=== PATIENT | female | born 1990 | race Caucasian/White ===

== ENCOUNTER 2025-05-18 09:49 | Outpatient (AMB) | payer OTHER, SELFPAY ==
--- NOTE | 2025-05-18 09:52 | MHC.OFFVIS ---
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 She has had a total of 5-10 seizures in her life with her last seizure in 09/2016. She was first treated with Depakote, but medication caused weight gain. She was switched to Keppra which was continued until her last breakthrough seizure when she missed just one dose and had major convulsive seizure. She was switched to topiramate and was taking extended release initially, but is now taking immediate release 400mg at bedtime without side effects or seizure recurrence. She was doing okay. She was taking topiramate at bedtime, no medication side effects. No seizures. Sleep was up and down. Mood was okay. [facility] Medical History (Updated 05/18/25 @ 09:54 by Bonita Guadalupe CNP) Epilepsy Review of Systems Const Denies chills, Denies daytime sleepiness, Reports difficulty sleeping, Denies fatigue, Denies fever(s), Denies frequent falls, Denies headache(s), Denies increased appetite, Denies poor appetite, Denies snoring, Denies weakness, Denies weight gain and Denies weight loss Eyes Denies loss of vision ENT Denies vertigo, Denies dizziness, Denies headache(s) and Denies neck pain Card Denies chest pain at rest, Denies chest pain with activity, Denies syncope, Denies leg edema, Denies palpitations, Denies dyspnea and Denies dyspnea on exertion Resp Denies cough, Denies dyspnea, Denies dyspnea on exertion and Denies snoring GI Denies abdominal pain, Denies constipation, Denies heartburn, Denies diarrhea and Denies nausea Denies urinary frequency, Denies urinary incontinence and Denies urinary urgency Musc Denies abnormal gait, Denies back pain, Denies myalgias, Denies arthralgias, Denies neck pain, Denies numbness and Denies tingling Neuro Denies abnormal gait, Denies vertigo, Denies dizziness, Denies syncope, Denies frequent falls, Denies headache(s), Denies lack of coordination, Denies loss of vision, Denies memory loss, Denies numbness, Denies Other visual disturbances, Denies restless legs, Denies seizure-like activity, Denies tingling, Denies paresthesias, Denies tremor(s) and Denies weakness Psych Denies anxiety, Denies depression, Denies auditory hallucinations, Denies memory loss and Denies visual hallucinations Endo Denies fatigue and Denies palpitations Physical Exam Const Other: General Appearance:? normal, in no acute distress. Heart:? S1, S2 normal, no murmurs. Lungs:? clear anteriorly and posteriorly. Musculoskeletal:? normal. Extremities:? no edema. Psych:? alert, oriented, cognitive function intact, cooperative with exam. Neuro Other: Abnormal Neurological Findings:?none.? Mental Status: alert and oriented X 3. Normal attention, orientation, memory, and affect. Cranial Nerves: Pupils are equal, round, and reactive to light. External ocular muscles are intact. Visual jaimes are full, no ptosis. Face is symmetrical, no facial weakness or droop. Facial sensations are normal. Tongue protrudes in midline. Palate elevates symmetrically. Shoulder shrugging is normal Motor Examination: Normal muscle tone, bulk and strength. No atrophy or fasciculations. No drift of the extended upper extremities. DTR 2+. Plantars are flexor. Sensory Exam: Normal light touch, temperature, pinprick, vibration, and joint-position sensations. Rhomberg sign is absent. Coordination: No ataxia. No titubation. Gait Exam: Within normal limits. Cerebellar Signs: [id number] is okay. Extrapyramidal System: No tremor, rigidity with normal facial expressions. No bradykinesia. No bradyphrenia. Normal arm swing and posture. No propulsion or retropulsion. Speech: Normal. Assessment & Plan Assessment & Plan (1) Epilepsy: Code(s): G40.909 - Epilepsy, unspecified, not intractable, without status epilepticus Category: Medical Qualifiers: Epilepsy type: generalized idiopathic Intractability: not intractable Status epilepticus: without status epilepticus Qualified Code(s): G40.309 - Generalized idiopathic epilepsy and epileptic syndromes, not intractable, without status epilepticus Plan: Continue topiramate 200mg 2 tablets at bedtime. Plan Meds tried: Depakote, Keppra, Topiramate XR Coding Level of Care Code Est Pt Level 3 (30256) Diagnoses Nonintractable generalized idiopathic epilepsy without status epilepticus G40.309 Epilepsy type: generalized idiopathic Intractability: not intractable Status epilepticus: without status epilepticus
--- OUTSIDE RECORDS SUMMARY | 2025-05-18 10:59 | XMS_ITS | Data Portability ---
Author Organization [place] - [facility], Allergy Address [address] [address] Assessment Encounter Date Assessment Date Assessment LastModified by Organization Details LastModified Time 12/13/2024 12/13/2024 34yo female with barometric headaches presents for evaluation of chronic left-sided rhinorrhea. The rhinorrhea is worse in the winter and while eating hot foods. She has been using Flonase with minimal relief. Nasal examination demonstrates inferior turbinate hypertrophy, left septal deviation, and mucoid rhinorrhea. Nasal endoscopy is benign. Recommend environmental allergy testing and another trial of INS and oral antihistamine. The patient will return for follow up after allergy testing for reevaluation, or sooner with worsening symptoms. May consider CT sinus if symptoms persist or worsen. Patient agrees with the plan and all questions were answered. 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 Allergy testing on 01/18/2025 demonstrated moderate sensitivities in all environmental allergen categories. We discussed lifestyle modifications, medical therapy versus immunotherapy. The patient is an excellent candidate for immunotherapy with either SCIT vs SLIT. She would like to trial daily fexofenadine and intranasal steroid spray for 4-6 weeks first, and will consider immunotherapy if symptoms persist or worsen. [facility] Not available 03/03/2025 10:49:04 Plan of Treatment Reminders Order Date Submit Date Provider Last Modified By Organization Details Last Modified Time Details Appointments None recorded. Lab None recorded. Referral None recorded. Procedures allergy testing, skin prick (PROC) 2024 025 [email or web address] Not available 5 15:55:02 intradermal allergy skin testing (PROC) 2024 025 [facility] Not available 15:55:02 pulmonary function test procedure (PROC) 2024 025 [facility] Not available 5 15:55:02 pulse oximetry (PROC) 2024 025 [facility] Not available 15:55:02 Surgeries None recorded. Imaging None recorded. Medication Orders None recorded. Patient TargetsNo targets recorded. Patient Instructions Encounter Date Encounter Id Patient Instructions Last Modified By Organization Details Last Modified Time 01/18/2025 [id number] spirometry testing* [email or web address] Not available 01/18/2025 12:11:57 Reason for Referral None Reported. Results Created Date Observation Date Name Description Value Unit Range Abnormal Flag Note LastModifiedBy Organization Detail LastModifiedTime 01/19/20 25 jorgito metry testi ng* No observ ation record ed. [email or web address] Not Available 2024 09:58:02 Result Notes None recorded. Problems Name Problem SNOMED Code Status Onset Date Resolution Date Notes Provider Name and Address Organization Details Recorded Time Allergic rhinitis 79337792 Active 025 VIOLETTA CLARKE PA-C 100 [facility],[address], [address] , [facility] 5 10:48:16 Problem Notes None recorded. Procedures Surgical History Date Name Laterality Status Provider Name and Address Organization Details Recorded Time 5 Allergy Testing-Full completed AP DICK RN 100 [facility],[address], [address], [facility] 01/18/2025 11:26:41 5 NasalEndosco py_DP completed VIOLETTA CLARKE PA-C 100 [facility],[address], [address], [facility] 12/13/2024 12:19:40 Imaging Results None recorded. Procedure Notes None recorded. Medical Equipment None Reported. Allergies Allergen ID Allergen Name Allergen Category Reaction Reaction Severity Criticality Documentation Date Start Date Code Code System Note Provider Name and Address Organization Details Recorded Time 648732 tree nut food itching mild Not available 03/03/2025 Margoth umaña [place] - [facility] 5 10:26:23 999320 Canis lupus familiari s extract environme nt itching mild Not available 03/03/20252011 00685 4 RxNorm Margoth umaña [place] - [facility] 5 10:26:23 560454 sawant allergeni c extract food,medi cation itching mild Not available 03/03/2025 65120 1 RxNorm Margoth umaña [place] [facility] 10:26:23 Medications Name Sig Start Date Stop Date Status Note LastModified by Organization Details LastModified Time metronidazol e 500 mg tablet TAKE 1 TABLET BY MOUTH TWICE A DAY FOR 7 DAYS 02/10 completed Not Available Not Available Not Available levothyroxin e 25 mcg tablet TAKE 1 TABLET BY MOUTH 1 TIME EACH DAY. active Not Available Not Available No t Available topiramate 200 mg tablet TAKE 2 TABLETS BY MOUTH AT BEDTIME FOR 90 DAYS active Not Available Not Available No t Available Vitals Date Recorded Body height Body mass index (BMI) Body weight Provider Name and Address Organization Details Last Updated DateTime 12/13/2024 165.1 cm 26.6 kg/m2 98142.78 g Margoth Babcock [place] [facility] 12/13/2024 09:29:03 Date Recorded Body height Oxygen saturation Heart rate Body mass index (BMI) Body weight Heart rate Systolic And Diastolic Provider Name and Address Organization Details Last Updated DateTime 165.1 cm 99 % 101 /min 27.5 kg/m2 38433.7 4 g 86 /min 124/88 mm[Hg] Lamar Kaba [address] [place] [address], [address] - [facility] 5 10:14:20 Date Recorded Body height Body mass index (BMI) Body weight Provider Name and Address Organization Details Last Updated DateTime 03/03/2025 165.1 cm 27.5 kg/m2 39584.74 g Margoth Yoko HASS[place] - [facility] 03/03/2025 10:26:15 Social History Question Answer Notes LastModified by Organizat ion Details LastModified Time Tobacco Smoking Status Former Smoker Margoth Cagetorres umaña [place] - [facility] 12/13/2024 09:29:24 How Many Years Have You Consumed Alcohol? 10 Information not available 12/13/2024 What Type Of Commercial Credit Head Do You Use? None Information not available 12/13/2024 How Many Alcoholic Drinks Do You Consume Per Day On Average? 0 Information not available 12/13/2024 When Did You Quit Smoking? 1-5yearssinc elastcigaret te Information not available 12/13/2024 What Is Your Current Pack Years? 10packyears Information not available 12/13/2024 Do You Have Any Pets? Yes Information not available 12/13/2024 At What Age Did You Start Smoking Tobacco? 13 Information not available 12/13/2024 Are You Passively Exposed To Smoke? No Information not available 12/13/2024 Are There Any Smokers In Your House? No Information not available 12/13/2024 How Much Tobacco Do You Smoke? 0.25 PPD Information not available 12/13/2024 How Many Years Have You Smoked Tobacco? 17 Information not available 12/13/2024 How Many Years Have You Used E-cigarettes Or Vape? 4 Information not available 12/13/2024 Sex: Unknown Functional Status Question Answer Note LastModified by Organization Details LastModified Time How many times per week do you consume alcohol? Less than 1 time per week Inform ation not available 12/13/2024 Do you use any illicit or recreational drugs? No Information not available 12/13/2024 Do you or have you ever used any other forms of tobacco or nicotine? Yes Information not available 12/13/2024 What is your level of alcohol consumption? Occasional Information not available 12/13/2024 Do you or have you ever used smokeless tobacco? Never used smokeless tobacco Information not available 12/13/2024 Do you or have you ever used e-cigarettes or vape? Current user of electronic cigarettes Information not available 12/13/2024 What type of noise exposure are you exposed to? noExposureToExcessiveNoise Infor mation not available 12/13/2024 Mental Status None recorded. Family History Relationship Description Onset Age of this Age Resolved Age Notes LastModified by Organization Details LastModified Time Paternal Aunt Disorder of thyroid gland Not available 2024 09:29:09 Maternal Grandmother Diabetes mellitus 71 Not available 2024 09:29:09 Medical History Condition Response Rhinitis Y Food Allergy Y Anxiety Y Tonsil Infections N Eczema N Thyroid Problems Y COPD N Nasal polyps N Nasal or Sinus Problems N High Cholesterol N Liver Disease N Headaches Y Other Skin Condition N Gynecological HistoryNo gynecological history recorded. Obstetrics History GPAL:G 0 P 0 0 0 0 Past Encounters Encounter ID Performer Location Encounter Start Date Encounter Closed Date Diagnosis/Indication Diagnosis SNOMED-CT Code Diagnosis ICD10 Code Diagnosis IMO Codes Diagnosis Note [id number] VIOLETTA CLARKE PA-C [facility] [address] [address] 12/13/2024 09:15:50 12/13/2024 10:06:46 Nasal discharge 61505771 J34.89 [id number] AP DICK RN Allergy [address] [place] [address] [address] 01/18/2025 09:56:42 01/18/2025 11:27:35 Perennial allergic rhinitis 606005555 J30.89 562004 [id number] VIOLETTA CLARKE PA-C [facility] [address] [address] 03/03/2025 10:12:42 03/03/2025 10:44:31 Allergic rhinitis 76937103 J30.9 4168792 Health Concerns Section Related Observation LastModified by Organization Detai ls LastModified Time None Recorded Concern Status LastModified by Organization Details LastModified Time None Recorded Advance Directives Directive None Recorded Payers Insurance Date Sequence Insurance Name Policy Number Policy Trevizo Covered Member ID Trevizo Member ID Guarantor Name 02/28/2025 1 [facility] PLAN (MEDICAID HMO) RAFA Gallo [id number] Anegla Gallo Notes Date Note Type Note Provider Name and Address Organization Details Recorded Time 12/13/2024 text/html ROS as noted in the [facility] 34yo female with barometric headaches presents for evaluation of left-sided rhinorrhea, This started 3+ years ago, worse in the winter. Nasal drainage refractory to saline or Flonase. Reports texture is between mucus and CSF. Reports bilateral clear nasal drainage with eating hot foods. Denies correlation with migraine, cold weather, or eating otherwise. Reports infrequent nasal congestion. Denies anosmia. In the past she has benefited from oral antihistamine. No sinus infection history. No prior head or neck surgery. 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 Allergy testing on 01/18/2025 demonstrated moderate sensitivities to all categories, most significant to birch tree. She reports allergy symptoms are fairly well-controlled with rare runny nose and headache. She started using Fexofenadine, which has helped, but often forgets to take this on a daily basis. She has not trialed any intranasal steroid sprays. She reports excessive dust exposure at work, frequent sneezing, and 1 dog at home. NATASHA BIGGS MD 100 [facility],[address], [address], [facility] - [facility] 03/03/2025 12:09:44 OBGyn Episode No OBEpisode recorded.
--- OUTSIDE RECORDS SUMMARY | 2025-05-18 10:59 | XMS_ITS ---
Author Name [facility] Organization Unknown Care Team Organization Name Specialty Phone Email Start Date End Da te [facility] RONALD CARBALLO Primary Care [email or web address] 08/21/2022 4 [facility] Mike, PROVIDER Primary Care 06/24/2022 4 [facility] Kelley Pedraza Primary Care 04/23/2022 4
--- OUTSIDE RECORDS SUMMARY | 2025-05-18 10:59 | XMS_ITS | Continuity of Care Document ---
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 [email or web address] Not available 03/03/2025 10:49:04 Plan of Treatment Reminders Order Date Submit Date Provider Last Modified By Organization Details Last Modified Time Details Appointments None record ed. Lab None record ed. Referral None record ed. Procedures None record ed. Surgeries None record ed. Imaging None record ed. Medication Orders None record ed. Patient TargetsNo targets recorded. Patient InstructionsNo instructions recorded. Reason for Referral None Reported. Problems Name Problem SNOMED Code Status Onset Date Resolution Date Notes Provider Name and Address Organization Details Recorded Time Allergic rhinitis 88798391 Active August CLARKE PA-C [address] [place] [address], [facility] SONYA luna, [address] , [place] - [facility] 5 10:48:16 Problem Notes None recorded. Procedures Surgical History Date Name Laterality Status Provider Name and Address Organization Details Recorded Time Allergy Testing-Full completed AP DICK RN 100 [facility] [address], [address], [facility] - [facility] 01/18/2025 11:26:41 5 NasalEndosco py_DP completed VIOLETTA CLARKE PA-C 100 [facility], [place], [address], [facility] - [facility] 12/13/2024 12:19:40 Imaging Results None recorded. Procedure Notes None recorded. Medical Equipment None Reported. Allergies Allergen ID Allergen Name Allergen Category Reaction Reaction Severity Criticality Documentation Date Start Date Code Code System Note Provider Name and Address Organization Details Recorded Time 508208 tree nut food itching mild Not available 03/03/2025 Margoth umaña [place] - [facility] 5 10:26:23 143503 Canis lupus familiari s extract environme nt itching mild Not available 03/03/20252011 36799 4 RxNorm Margoth umaña [place] [facility] 5 10:26:23 997659 sawant allergeni c extract food,medi cation itching mild Not available 03/03/2025 82081 1 RxNorm Margoth umaña [place] - [facility] 5 10:26:23 Medications Name Sig Start Date Stop [...] Updated DateTime 03/03/2025 165.1 cm 27.5 kg/m2 29039.74 g Margoth Babcock [place] [facility] 03/03/2025 10:26:15 Social History Question Answer Notes LastModified by Organizat ion Details LastModified Time Tobacco Smoking Status Former Smoker Margoth umaña [place] - [facility] 12/13/2024 09:29:24 How Many Years Have You Consumed Alcohol? 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 None Information not available [...] ICD10 Code Diagnosis IMO Codes Diagnosis Note [id number] VIOLETTA CLARKE PA-C [facility] [address] [address] 03/03/2025 10:12:42 03/03/2025 10:44:31 Allergic rhinitis 12133005 J30.9 8215218 Health Concerns Section Related Observation LastModified by Organization Detai ls LastModified Time None Recorded Concern Status LastModified by Organization Details LastModified Time None Recorded Payers Encounter Date Sequence Insurance Name Policy Number Policy Trevizo Covered Member ID Trevizo Member ID Guarantor Name 03/03/2025 1 [facility] PLAN (MEDICAID HMO) RAFA Gallo [id number] Angela Gallo Notes Date Note Type Note Provider Name and Address Organization Details Recorded Time 03/03/2025 text/html ROS as noted in the HPI 34-year-old 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 NATASHA BIGGS MD [address] [place] [address], [place], [address], [place] [facility] 03/03/2025 12:09:44 OBGyn Episode No OBEpisode recorded.
--- OUTSIDE RECORDS SUMMARY | 2025-05-18 10:59 | XMS_ITS | Clinical Summary ---
Author Organization [facility] [address] [facility] Address [address] 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 Active levothyroxine (SYNTHROID, LEVOTHROID) 25 mcg tablet TAKE 1 TABLET BY MOUTH 1 TIME EACH DAY. 90 tablet 04/11/2025 Active Active Problems Problem Noted Date Diagnosed Date Seizure ([facility] V24, [facility] V28) 09/24/2024 Hypothyroidism 09/24/2024 Epilepsy ([facility] V24, [facility] V28) 03/18/2024 Overview (03/18/2024): [place] [facility] - Dr. 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 Pap 2/10 MIRIAM 1 again, repeat colposcopy 08/21/09 - MIRIAM 1 07/12/2013 - Cervical high risk human pap illomavirus (HPV) DNA test positive 03/01/2008 Overview (03/18/2024): MIRIAM 1 by colpo 02/21, pap repeated 01/22 - normal. Pap 2/10 MIRIAM 1 again, repeat colposcopy 08/21/09 - MIRIAM 1 07/12/2013 - colpo bx normal. Pap 2014 normal with + HPV. Pap 2015 ASCUS and HPV. Colposcopy - 03/2016, normal, ECC normal. Repeat co-testing 12 months. Chronic lymphocytic thyroiditis 11/04/2005 Immunizations Immunization Administration Dates Next Due BCG 04/02/1993,1989 DTP 03/26/1994, 1,01/20/1990,11/25,1989 [id number] (Pentacel) 2mo to less than 5yo 04/02/1993 HPV, Quadrivalent 07/10/2007,02/17/2007,12/03/19 07 Hepatitis B Pediatric (Enger ix B; Recombivax HB) to less than 20 yo 04/02/2002,10/16/2001,09/15/2001 Influenza Quadravalent, MDCK , 0.5ml, preservative free (Flucelvax) 6mo and older 04/29/2022 Influenza trivalent, with pr eservative (Fluzone; Afluria) 6mo and older 03/09/2015,05/18/2013,03/26/2011 MMR, measles mumps and rubel la Live (Priorix; M-M-R II) 12mo and older 03/26/1999,04/02/1993 Measles 08/10/1990 Meningococcal MCV4P 12/02/2006 OPV 03/26/1994, 1,01/20/1990,11/25,1989 Td Tetanus diptheria (Tdvax) 7yo and older 09/15/2001 Tdap Tetanus diptheria acell ular pertussis (Boostrix; Adacel) 7yo and older 01/14/2017,12/02/2006 Varicella live (Varivax) 12m o and older 05/27/1991 Surgical History Surgery Date Site/Laterality Comments WISDOM TOOTH EXTRACTION PROCEDURE: HISTORICAL WISDOM TEETH EXTRACTION Medical History Medical History Date Comments Varicella without mention of complication 1990 DX:Varicella without mention of complication Streptococcal sore throat DX:Str eptococcal sore throat Unspecified otitis media DX:Unsp ecified otitis media 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 DX:Generalized convulsive ep ilepsy without mention of intractable epilepsy; COMMENT: 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 11/08/2006 DX:Generalized convulsive ep ilepsy without mention of intractable epilepsy; COMMENT: Dr Pittman/neuro recent visit 04-22 Single seizure 2 /EEG primary generalized epilepsy Depakote 250mg am and 500mg pm till summer 2005 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 Unspecified epilepsy without mention of intractable epilepsy DX:Unspecified epilepsy with out mention of intractable epilepsy; COMMENT: 07/20-Shira Pittman neuro recent visit 04-22 Single seizure 2 /EEG showed primary generalized epilepsy Depakote 250mg am and 500mg pm till summer 2005 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 Visit 10-21,poor compliance ,no driving advised,trial off meds x6m f/u last pedi visit 04-23 Family History Medical History Relation Name Comments Diabetes Maternal Grandmother Insulin Hypertension Paternal Grandfather Breast cancer Neg Hx Colon cancer Neg Hx Ovarian cancer Neg Hx Pancreatic cancer Neg Hx Prostate cancer Neg Hx Uterine cancer Neg Hx Relation Name Status Comments Brother Alive Father Alive Koko-1956 Maternal Grandmother Mother Alive Nevaeh-1956 Mo leslye from [place] 2000 Paternal Grandfather (Age 70's) gastric cancer Social History Tobacco Use Types Packs/Day Years Used Date Smoking Tobacco: Former Cigarettes 0.3 Q uit: 10/01/2015 Smokeless Tobacco: Current Alcohol Use Standard Drinks/Week Comments Yes 0 (1 standard drink = 0.6 oz pur e alcohol) Housing Instability Answer Date Recorde d Are you worried that in the next 2 months you may not have stable housing? No 05/25/2024 Food Access & Nutrition Answer Date Rec orded Do you have access to a vari ety of food including fruits and vegetables? Yes 05/25/2024 Access to Healthcare Answer Date Record ed Within the last 3 months, ho w many times did you visit the emergency department for your medical care? 0 05/25/2024 Health Literacy Answer Date Recorded How often do you need to hav e someone help you when you read instructions, pamphlets, or other written material from your doctor or pharmacy? Never 05/25/2024 Caregiver: How often do you need to have someone help you when you read instructions, pamphlets, or other written material from your doctor or pharmacy? Not on file 05/25/2024 Financial Risk Answer Date Recorded How hard is it for you to pa y for the very basics like food, housing, medical care, and air conditioning / heating? Not very hard 05/25/2024 Transportation Answer Date Recorded Has the lack of transportati on kept you from meetings, work, or from getting things needed for daily living? No Has the lack of transportati on kept you from medical appointments or from getting medications? No 05/25/2024 Social Isolation Answer Date Recorded How often do you feel lonely or isolated from th ose around you? Rarely 05/25/2024 Food Risk Answer Date Recorded Within the past 12 months we worried whether our food would run out before we got money to buy more. Never true 05/25/2024 Within the past 12 months th e food we bought just didn't last and we didn't have money to get more. Never true 05/25/2024 Dependent Care Answer Date Recorded Do you need help finding or paying for care for your loved ones. For example, child abuse worker or elderly care for an older adult? No 05/25/2024 Education Answer Date Recorded Do you think completing more education or training, like finishing a GED, going to college, or learning a trade, would be helpful for you? Yes 05/25/2024 Employment and Income Answer Date Recor ded During the last four weeks, have you been actively looking for work? Yes 05/25/2024 Living Situation Answer Date Recorded What is your living situation? Unrecognized valu e 05/25/2024 Comments No Sex and Gender Information Value Date Recorded Sex Assigned at Not on file Legal Sex Female 9:58 AM EST Gender Identity Not on file Sexual Orientation Not on file Obstetrics History * This document contains information received from the source organization and may not represent a complete record from that organization. Para Term AB IAB SAB Ectopic Multiple Livin g Live Births 1 0 0 0 0 0 0 0 Date Outcome GA Total Labor Labor/2nd/3rd Weight Sex Type Anes PTL Bri A1 A5 Name Clin Last Filed Vital Signs Vital Sign Reading Time Taken Comments Blood Pressure 131/85 10/22/2024 11:21 AM EDT Pulse 85 10/22/2024 11:21 AM EDT Temperature 36.6 C (97.9 F) 10/22/2024 11:21 AM EDT Respiratory Rate 12 05/26/2024 12:33 PM EST Oxygen Saturation 100% 10/22/2024 11:21 AM EDT Inhaled Oxygen Concentration - - Weight 75.3 kg (166 lb) 10/22/2024 11:21 AM EDT Height 165.1 cm (5' 5 ) 10/22/2024 11:21 AM EDT Body Mass Index 27.62 10/22/2024 11:21 AM EDT Plan of Treatment Upcoming Encounters Date Type Department Care Team (Late st Contact Info) Description 06/24/2025 10:20 AM EST Office Visit Endocrinology [address] [phone] Elba Herrera PA [address] [place], [place] 06/30/2025 3:00 PM EST Office Visit Adult Medicine [address] [phone] Roselia Delgado MD [address] [place], [place] Health Maintenance Due Date Last Done Comments COVID-19 Vaccine ( season) 2025 10/14/2021, 12/05/2020, 11/07/2020 Influenza Vaccine (#1) 2025 2, 03/09/2015, 05/18/2013, Additional history exists Social Influencers of Health Screening 05/25/2025 05/25/2024 DTaP,Tdap,and Td Vaccines (9 - Td or Tdap) 01/14/2027 01/14/2017, 12/02/2006, 09/15/2001, Additional history exists Cervical Cancer Screening: HPV 01/27/2029 01/28/2024 Cholesterol Screening (Lipid Panel) 04/30/2029 04/30/2024, 04/29/2022 RSV Immunization Adult Patients (1 - 1-dose 75+ series) 2064 Varicella Vaccines Aged Out 05/27/1991 No longer eligible based on patient's age to complete this topic HIB Vaccines Completed 04/02/1993, 04/02/1993 IPV Vaccines Completed 03/26/1994, 03/16, 02/12/1991, Additional history exists MMR Vaccines Completed 03/26/1999, 04/02/1993 Hepatitis B Vaccines Completed 04/02/2002, 10/16/2001, 09/15/2001 Meningococcal ACWY Vaccine Completed 12/02/2006 HPV Vaccines Completed 07/10/2007, 09/2006, 12/02/2006 HIV Screening Completed 02/18/2018 Hepatitis C Screening Completed 02/18/2018 Depression Screening Completed 09/17/2024, 12/30/19 24 Hepatitis A Vaccines Aged Out No long er eligible based on patient's age to complete this topic Meningococcal B Vaccine Aged Out No l onger eligible based on patient's age to complete this topic Pneumococcal Vaccine: Pediatrics (0 to 5 Years) and At-Risk Patients (6 to 49 Years) Aged Out No longer eligible based on patient's age to complete this topic RSV Immunization Patients Under 20 months Aged Out No longer eligible based on patient's age to complete this topic Procedures Procedure Name Priority Date/Time Associated Diagnosis Comments LIPID PANEL WITH REFLEX TO DIRECT LDL Routine 04/30/2024 11:02 AM EST Overweight (BMI 25.0-29.9) Chronic lymphocytic thyroiditis Epilepsy (CMS/HCC V24, CMS/HCC V28) HPV Routine 01/28/2024 DEPRESSION SCREENING Routine 12/30/2023 HEPATITIS C SCREENING Routine 02/18/2018 HIV SCREENING Routine 02/18/2018 from Last 3 Months or Most Recently Relevant to Health Maintenance Results * Lipid panel with reflex to direct LDL (04/30/2024 11:02 AM EST) Cholesterol 175 0 - 200 mg/dL LAB CHEMISTRY METHOD 04/30/2024 5:23 PM EST [facility] Triglycerides 63 0 - 150 mg/dL LAB CHEMISTRY METHOD 04/30/2024 5:23 PM EST [facility] HDL 66 >=40 mg/dL LAB CHEMISTRY METHOD 04/30/2024 5:23 PM EST [facility] LDL Calculated 96 0 - 100 mg/dL LAB CHEMISTRY METHOD 04/30/2024 5:23 PM EST [facility] VLDL Cholesterol Carlos Alberto 12.6 mg/dL LAB CHEMISTRY METHOD 04/30/2024 5:23 PM EST [facility] Non HDL Chol. (LDL+VLDL) 109 <145 mg/dL LAB CHEMISTRY METHOD 04/30/2024 5:23 PM EST [facility] Chol/HDL Ratio 2.7 0.0 - 4.4 LAB CHEMISTRY METHOD 04/30/2024 5:[address] [facility] Blood Venous blood specimen / Unknown Venipuncture / Unknown 04/30/2024 11:02 AM EST 04/30/2024 11:02 AM EST us Roselia Delgado MD LAB BLOOD ORDERABLES Final Result [facility] [address] [place] [address], [place] [phone] * Cervical Cancer Screening: HPV (01/28/2024) Pathologist [facility] Cervical Cancer Screening: HPV negative,a bstracted Historical Provider HEALTH MAINTENANCE Final Result * Depression Screening (12/30/2023) Pathologist [facility] Depression Screening ABSTRACTED Historical Provider HEALTH MAINTENANCE Final Result * HIV Screening (02/18/2018) [facility] HIV Screening ABSTRACTED Historical Provider HEALTH MAINTENANCE Final Result * Hepatitis C Screening (02/18/2018) [facility] Hepatitis C Screening ABSTRACTED [facility] Provider HEALTH MAINTENANCE Final Result from Last 3 Months or Most Recently Relevant to Health Maintenance Insurance [facility] [employer] 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
== END 2025-05-18 10:06 | disposition home or self-care (01) ==
LOC: HO.HSM 09:50
PROVIDERS: PCP Internal Medicine; Referring Provider Internal Medicine; Visit Provider Registered Nurse
DX: G40.309 Generalized idiopathic epilepsy and epileptic syndromes, not intractable, without status epilepticus (principal)
CPT/HCPCS: 99213

== ENCOUNTER → 2025-05-18 09:49 | Outpatient (BNVA) | payer OTHER, SELFPAY | PROVIDERS: PCP Internal Medicine; Referring Provider Internal Medicine; Visit Provider Registered Nurse | DX: G40.309 Generalized idiopathic epilepsy and epileptic syndromes, not intractable, without status epilepticus (principal); Z79.899 Other long term (current) drug therapy | CPT/HCPCS: 99212 ==